=== PATIENT | male | born 1960 | race Caucasian/White ===

== ENCOUNTER 2019-06-21 09:14 | Emergency (ER) | payer OTHER ==
[~2019-06-21] VITALS: Ht 177.8 cm; Wt 102.1 kg
[2019-06-21] MEDS ORDERED: XANAX2 MG PO (09:24)
[2019-06-21 09:37] LABS: ABSOLUTE EOSINOPHILS 0.5 thou/uL (0.0-0.7); ABSOLUTE LYMPHOCYTES 2.9 thou/uL (0.8-5.3); ABSOLUTE MONOCYTES 1.1 thou/uL (0.0-1.2); ABSOLUTE NEUTROPHILS 6.9 thou/uL (1.6-8.1); BASOPHILS 0.4 %; EOSINOPHILS 4.7 %; HEMATOCRIT 50.2 % (42.0-52.0); HEMOGLOBIN 17.6 gm/dL (14.0-18.0); LYMPHOCYTES 25.5 %; MCH 30.6 pg (26.0-34.0); MCHC 35.1 g/dL (28.0-37.0); MCV 87.2 fL (80.0-100.0); MONOCYTES 9.5 %; MPV 8.3 fl. (7.2-11.1); NUCLEATED RBCS 0 /100WBC; PLATELET COUNT* 267 thou/uL (150-400); POLYS 59.9 %; RBC 5.75 mil/uL (4.50-6.00); RDW-CV 13.7 % (10.5-14.5); WBC 11.4 thou/uL (4.0-11.0)
[2019-06-21 09:49] LABS: CALCIUM 8.7 mg/dL (8.5-10.1); CREATININE 1.1 mg/dL (0.6-1.3); POTASSIUM 4.3 mmol/L (3.5-5.1)
[2019-06-21 09:54] LABS: ALBUMIN 3.9 g/dL (3.4-5.0); TOTAL BILIRUBIN 0.5 mg/dL (<0.1-1.0); TOTAL PROTEIN 7.5 g/dL (6.4-8.2)
[2019-06-21 10:17] LABS: APTT 26.1 Seconds (25.0-31.3)
[2019-06-21 11:01] VITALS: BP 143/92
--- NOTE | 2019-06-22 11:36 | EKG ---
[place] [address] ELECTROCARDIOGRAM REPORT Name: SHYLA SAMANIEGO Room: [facility]#: [id number] Admission: 06/21/19 Attend Phys: Discharge: 06/21/19 Date of : 62 Report #: [id number] THIS REPORT FOR: //name// [facility] ED Test Date: 2019-06-21 Test Time: 09:22:15 Pat Name: SHYLA SAMANIEGO Department: Room: Gender: M Social Service Liaison: : 1960 Requested By: Andrés Bravo Order Number: [id number] MD: Francisco Lynch Measurements Intervals [place] Rate: 72 P: 10 HI: 193 QRS: 3 QRSD: 81 T: 38 QT: 384 QTc: 421 Interpretive Statements Sinus rhythm Borderline low voltage, extremity leads Baseline wander in lead(s) V4 No previous ECG available for comparison Electronically Signed On 06-22-2019 11:36:23 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
== END 2019-06-21 11:14 | disposition short-term general hospital (02) ==
LOC: M.ERS 09:14
PROVIDERS: Family Medicine
DX: I60.9 Nontraumatic subarachnoid hemorrhage, unspecified (principal); F41.9 Anxiety disorder, unspecified; F17.200 Nicotine dependence, unspecified, uncomplicated